=== PATIENT | female | born 1995 | race American Indian/Alaskan Native ===

== ENCOUNTER 2020-11-09 14:03 | Outpatient (CLI) | payer OTHER ==
[2020-11-09 14:38] VITALS: BP 108/68
[2020-11-09] MEDS ORDERED: ACETAMINOPHEN 500 MG TAB ONE (15:05)
[2020-11-09] MEDS ORDERED: ACETAMINOPHEN 500 MG TAB PO ONE (16:00)
== END 2020-11-09 15:29 | disposition home or self-care (01) ==
LOC: TRG 14:03 → APU 14:04 → TRG 15:29
PROVIDERS: ATTEND Obstetrics & Gynecology
DX: O26.892 Other specified pregnancy related conditions, second trimester (principal); R10.9 Unspecified abdominal pain; Z3A.29 29 weeks gestation of pregnancy
CPT/HCPCS: 59025